=== PATIENT | female | born 1955 | race Caucasian/White ===

== ENCOUNTER 2023-11-03 10:09 | Inpatient (IN) | payer MEDICARE ==
[2023-11-03] MEDS ORDERED: Ketorolac Tromethamine 30 MG (1 mL) VIAL ONE (10:52)
[2023-11-03 10:55] LABS: #Basophils Less than 0.03 10x3/uL (0.0-0.2); #Eosinphils Less than 0.03 10x3/uL (0.0-0.7); %Basophils 0.1 % (0.0-1.0); %Lymphocytes 1.4 % (21.0-51.0); %Monocytes 5.4 % (0.0-10.0); %Neutrophils 92.5 % (42.0-75.0); Hematocrit 33.9 % (36.0-47.0); Hemoglobin 11.9 g/dL (12.0-16.0); Mean Corpuscular HGB CONC 35.1 g/dL (32.0-36.0); Mean Corpuscular Volume 96.9 fL (78.0-98.0); Mean Platelet Volume 10.2 fL (7.4-10.4); Platelet Count 164 10x3/uL (130-400); RBC Distribution Width 13.2 % (11.5-14.5)
[2023-11-03 11:11] LABS: ALT (SGPT) 14 U/L (8-55); AST (SGOT) 20 U/L (5-34); Albumin 3.2 g/dL (3.4-4.8); Alkaline Phosphatase 78 U/L (40-110); Anion Gap 19 mmol/L (10-20); BUN (Urea Nitrogen) 14 mg/dL (9.8-20.1); Bilirubin, Total 0.7 mg/dL (0.2-1.2); Calc. Creatinine Clearance 0 mL/min (70-130); Calcium 9.1 mg/dL (7.8-10.44); Carbon Dioxide 21 mmol/L (23-31); Chloride 103 mmol/L (98-107); Estimated GFR 64; Globulin 3.4 g/dL (2.4-3.5); Glucose 152 mg/dL (80-115); Protein, Total 6.6 g/dL (5.8-8.1); Sodium 139 mmol/L (136-145)
[2023-11-03 11:15] LABS: INR-International Normal Ratio 1.2; PTT 27.9 sec (22.9-36.1); Prothrombin Time 14.7 sec (12.0-14.7)
[2023-11-03] MEDS ORDERED: Sodium Chloride 0.9% 100 ML ONE (12:30)
[2023-11-03] MEDS ORDERED: Metoclopramide HCl 10 MG (2 mL) VIAL ONE (12:30)
[2023-11-03] MEDS ORDERED: cefTRIAXone (ROCEPHIN) 1 GM VIAL ONE (12:30)
[2023-11-03 13:14] LABS: Bacteria/HPF 4+ HPF (None Seen); Bilirubin Negative (Negative); Blood, Urine 1+ (Negative); CAUTI Indications for Culture Alt mental st,lethar; Clarity Turbid (Clear); Glucose, Urine (Dipstick) Normal (Negative); Ketone, Urine 10 mg/dL (Negative); Leukocyte 250 Leu/uL (Negative); Nitrite 2+ (Negative); Protein, Urine (Dipstick) 100 mg/dL (Neg-Trace); RBC/HPF 0-3 HPF (0-3); Specific Gravity, Urine 1.015 (1.002-1.036); Squamous Epithelial None Seen HPF (0-3); Urobilinogen Normal mg/dL (Less than 2); WBC/HPF Greater than 50 HPF (0-3)
[2023-11-03 13:15] LABS: Urine Culture Reflex Yes Yes
[2023-11-03] MEDS ORDERED: Ondansetron PF 4 MG/2 ML Vial ONE (13:44)
[2023-11-03] MEDS ORDERED: Morphine 4 MG/ML VIAL ONE (13:44)
[2023-11-03] MEDS ORDERED: Acetaminophen 650 MG Suppository PR PRN (14:58)
[2023-11-03] MEDS ORDERED: Ondansetron ODT 4 MG TAB PO PRN (14:58)
[2023-11-03] MEDS ORDERED: Acetaminophen 500 MG TAB ONE (15:17)
[2023-11-03 16:53] LABS: Magnesium 1.9 mg/dL (1.6-2.6)
[2023-11-03] MEDS: Sodium Chloride 0.9% 1,000 ML IV SCH (18:07)
[2023-11-03 18:25] VITALS: BMI 22.9
[2023-11-03] MEDS: Magnesium 2 GM/50 ML(in water) 2 GM in Premix 1 BAG IVPB SCH (19:58)
[2023-11-03] MEDS: traMADol HCl 50 MG TAB PO PRN (20:57)
[2023-11-03] MEDS: Acetaminophen 325 MG TAB PO PRN (23:37)
[2023-11-04 05:25] LABS: #Basophils Less than 0.03 10x3/uL (0.0-0.2); #Eosinphils Less than 0.03 10x3/uL (0.0-0.7); %Basophils 0.2 % (0.0-1.0); %Eosinophils 0.2 % (0.0-10.0); %Lymphocytes 2.4 % (21.0-51.0); %Monocytes 8.4 % (0.0-10.0); %Neutrophils 88.3 % (42.0-75.0); Hematocrit 27.4 % (36.0-47.0); Hemoglobin 9.4 g/dL (12.0-16.0); Mean Corpuscular HGB CONC 34.3 g/dL (32.0-36.0); Mean Corpuscular Hemoglobin 33.2 pg (27.0-31.0); Mean Corpuscular Volume 96.8 fL (78.0-98.0); Mean Platelet Volume 10.8 fL (7.4-10.4); Platelet Count 124 10x3/uL (130-400); RBC Distribution Width 13.2 % (11.5-14.5); Red Blood Cell (RBC) Count 2.83 mill/uL (4.20-5.40)
[2023-11-04 06:23] LABS: ALT (SGPT) 11 U/L (8-55); AST (SGOT) 18 U/L (5-34); Albumin 2.3 g/dL (3.4-4.8); Alkaline Phosphatase 72 U/L (40-110); Anion Gap 10 mmol/L (10-20); BUN (Urea Nitrogen) 11 mg/dL (9.8-20.1); Bilirubin, Total 0.3 mg/dL (0.2-1.2); Calc. Creatinine Clearance 63 mL/min (70-130); Calcium 7.6 mg/dL (7.8-10.44); Carbon Dioxide 21 mmol/L (23-31); Chloride 109 mmol/L (98-107); Estimated GFR 76; Globulin 2.7 g/dL (2.4-3.5); Glucose 111 mg/dL (80-115); Potassium 3.5 mmol/L (3.5-5.1); Sodium 136 mmol/L (136-145)
[2023-11-04] MEDS: Sodium Chloride 0.9% 1,000 ML IV SCH (08:18)
[2023-11-04] MEDS: Letrozole 2.5 MG TAB PO SCH (08:18)
[2023-11-04 11:15] VITALS: BMI 22.9
[2023-11-04] MEDS: cefTRIAXone\\ROCEPHIN 2 GM in Sodium Chloride 0.9% 100 ML IVPB SCH (13:20)
[2023-11-05] MEDS: Senokot S 8.6-50 MG TAB PO PRN (03:28)
[2023-11-05 05:48] LABS: ALT (SGPT) 21 U/L (8-55); AST (SGOT) 27 U/L (5-34); Albumin 2.1 g/dL (3.4-4.8); Alkaline Phosphatase 93 U/L (40-110); Anion Gap 8 mmol/L (10-20); BUN (Urea Nitrogen) 9 mg/dL (9.8-20.1); Bilirubin, Total 0.2 mg/dL (0.2-1.2); Calc. Creatinine Clearance 70 mL/min (70-130); Calcium 7.8 mg/dL (7.8-10.44); Carbon Dioxide 20 mmol/L (23-31); Chloride 109 mmol/L (98-107); Estimated GFR 85; Globulin 2.8 g/dL (2.4-3.5); Glucose 104 mg/dL (80-115); Potassium 3.3 mmol/L (3.5-5.1); Protein, Total 4.9 g/dL (5.8-8.1); Sodium 134 mmol/L (136-145)
[2023-11-05 06:43] LABS: #Basophils Less than 0.03 10x3/uL (0.0-0.2); %Basophils 0.3 % (0.0-1.0); %Eosinophils 0.8 % (0.0-10.0); %Neutrophils 86.5 % (42.0-75.0); Hematocrit 27.6 % (36.0-47.0); Hemoglobin 9.6 g/dL (12.0-16.0); Mean Corpuscular HGB CONC 34.8 g/dL (32.0-36.0); Mean Corpuscular Hemoglobin 33.2 pg (27.0-31.0); Mean Corpuscular Volume 95.5 fL (78.0-98.0); Mean Platelet Volume 10.9 fL (7.4-10.4); Platelet Count 126 10x3/uL (130-400); RBC Distribution Width 13.2 % (11.5-14.5); Red Blood Cell (RBC) Count 2.89 mill/uL (4.20-5.40)
[2023-11-05] MEDS: Topiramate 25 MG TAB PO SCH (07:52)
[2023-11-05] MEDS: Ondansetron PF 4 MG/2 ML Vial IVP PRN (08:58)
[2023-11-05] MEDS: Pantoprazole DR 40 MG TAB PO SCH (10:33)
[2023-11-05] MEDS ORDERED: Electrolyte Replacement Protocol 1 EACH FS SCH (11:00)
[2023-11-05] MEDS: Potassium Chloride 20 MEQ TAB PO SCH (13:24)
[2023-11-05] MEDS ORDERED: Fioricet 325/50/40 mg Tablet PO PRN (14:44)
[2023-11-05] MEDS ORDERED: Morphine 2 MG/ML VIAL SLOW IVP PRN (14:45)
[2023-11-05] MEDS: Sodium Chloride 0.9% 1,000 ML IV SCH (15:53)
[2023-11-05] MEDS: Lactulose 20 GM (30 mL) UDCUP PO PRN (17:39)
[2023-11-05] MEDS: Calcium Carbonate 500 MG ChewTAB PO PRN (19:36)
[2023-11-05] MEDS: Acetaminophen/Codeine 30-300mg Tablet PO PRN (19:36)
[2023-11-06 05:17] LABS: #Basophils Less than 0.03 10x3/uL (0.0-0.2); %Basophils 0.4 % (0.0-1.0); %Eosinophils 2.5 % (0.0-10.0); %Lymphocytes 6.8 % (21.0-51.0); %Monocytes 12.4 % (0.0-10.0); %Neutrophils 77.7 % (42.0-75.0); Hematocrit 29.7 % (36.0-47.0); Hemoglobin 10.4 g/dL (12.0-16.0); Mean Corpuscular Hemoglobin 34.2 pg (27.0-31.0); Mean Corpuscular Volume 97.7 fL (78.0-98.0); Mean Platelet Volume 10.8 fL (7.4-10.4); Platelet Count 145 10x3/uL (130-400); RBC Distribution Width 13.2 % (11.5-14.5); Red Blood Cell (RBC) Count 3.04 mill/uL (4.20-5.40)
[2023-11-06 05:42] LABS: ALT (SGPT) 61 U/L (8-55); AST (SGOT) 56 U/L (5-34); Albumin 2.2 g/dL (3.4-4.8); Alkaline Phosphatase 203 U/L (40-110); Anion Gap 13 mmol/L (10-20); BUN (Urea Nitrogen) 7 mg/dL (9.8-20.1); Bilirubin, Total 0.2 mg/dL (0.2-1.2); Calc. Creatinine Clearance 67 mL/min (70-130); Calcium 8.8 mg/dL (7.8-10.44); Carbon Dioxide 20 mmol/L (23-31); Chloride 110 mmol/L (98-107); Estimated GFR 81; Glucose 97 mg/dL (80-115); Potassium 3.8 mmol/L (3.5-5.1); Protein, Total 5.2 g/dL (5.8-8.1); Sodium 139 mmol/L (136-145)
[2023-11-06 14:58] VITALS: BP 123/78; TEMP 98.7
== END 2023-11-06 15:01 | disposition home or self-care (01) | DRG 872 ==
LOC: ERS 10:09 → ERHOLD 14:17 → MSONC 17:33
PROVIDERS: ADMIT Internal Medicine; ATTEND Internal Medicine
DX: A41.51 Sepsis due to Escherichia coli [E. coli] (principal); N10 Acute pyelonephritis; M81.0 Age-related osteoporosis without current pathological fracture; D63.8 Anemia in other chronic diseases classified elsewhere; R63.4 Abnormal weight loss; I95.9 Hypotension, unspecified; C50.919 Malignant neoplasm of unspecified site of unspecified female breast; Z92.21 Personal history of antineoplastic chemotherapy; Z98.891 History of uterine scar from previous surgery; Z90.11 Acquired absence of right breast and nipple; Z98.890 Other specified postprocedural states; Z68.23 Body mass index [BMI] 23.0-23.9, adult
CPT/HCPCS: 36415; 36416; 70450; 76770; 80053; 81001; 83605; 83735; 85025; 85610; 85730; 87040; 87077; 87086; 87149; 87186; 93005; 94760; 96361; 96365; 96375; J0696; J1885; J2270; J2405; J2765; J3475; J3490; J7050